=== PATIENT | male | born 1950 | race Caucasian/White ===

== ENCOUNTER 2020-05-09 09:14 | Day surgery (SDC) | payer MEDICARE, SELFPAY ==
[2020-05-09] VITALS (10 sets, daily range): BP systolic 100–127; BP diastolic 58–96; PULSE 50–68; RESP 12–18; TEMP 36.3–36.9; O2SAT 93–99
--- NOTE | ~2020-05-09 | CT_ITS ---
EXAMINATION: CT abdomen pelvis wo con EXAM DATE: 05/09/2020 10:03 INDICATION: Right-sided low abdominal pain 2-3 days. History of kidney stones. Nausea, constipation. TECHNIQUE: Spiral CT of the abdomen and pelvis was performed without contrast. Axial, coronal and sag ittal images were reviewed. The dose-length product (DLP) for this examination was 1421.37 mGy-cm. The exposure was tailored according to patient size (auto mA exposure control), and iterative reconst ruction (ASIR) was used as additional dose reduction technique. Comparison is made to prior examinati on from 11/29/2019. FINDINGS: There is a right midureteral 6 mm stone, with mild hydroureteronephrosis and perinephric, p eriureteral fat stranding. There are 2 additional punctate right calyceal stones. The prostate is un remarkable. The bladder is unremarkable. There is 1.1 cm right adrenal gland lesion consistent with adenoma unchanged. Left adrenal gland, spleen, liver, pancreas are unremarkable. Gallbladder is unr emarkable. No biliary obstruction. There is no retroperitoneal or pelvic lymphadenopathy. There i s mild scattered arteriosclerotic disease. Small bilateral inguinal fat-containing hernias, right lar lindsey than left. Tiny umbilical fat-containing hernia. The appendix is not positively visualized. There is no pericecal inflammatory change to suggest appe ndicitis. The stomach and small bowel are unremarkable. There is expected amount of colonic stool. No free intraperitoneal gas. The heart is normal in size. There are no pericardial or pleural e ffusions. The lung bases are unremarkable. The bones are unremarkable. IMPRESSION: 1. Right mid ureteral 6 mm stone, mild obstructive nephropathy. 2. Right adrenal adenoma. 3. Small fat-containing hernias. Reviewed, dictated and finalized at location B.
--- NOTE | ~2020-05-09 | XR_ITS ---
EXAMINATION: XR abdomen/kub 1V EXAM DATE: 05/09/2020 10:08 INDICATION: Right-sided abdominal pain. TECHNIQUE: Frontal projection(s) of the abdomen for interpretation. Comparison is made to prior exami nation from 11/23/2019. FINDINGS: Right mid ureteral 6 mm stone is identified, indicated projecting over the right side of S 2 segment. There a mild to moderate bony degenerative changes. Nonobstructive bowel gas pattern. Mild lumbar scoliosis. IMPRESSION: Right mid ureteral stone identified. Reviewed, dictated and finalized at location B.
--- NOTE | 2020-05-09 09:42 | ED.ABDPAIN ---
HPI - Abdominal Pain General Chief Complaint: Abdominal Pain Stated Complaint: R flank pain Time Seen by Provider: 05/09/20 09:32 Source: patient Mode of arrival: ambulatory Limitations: no limitations History of Present Illness HPI narrative: Patient is a 70-year-old male with a history of nephrolithiasis who presents for evaluation of right-sided flank pain. Patient states pain began last night, described as sharp, at times very severe in nature with radiation into the lower groin. No testicle pain or penile pain at this point. Patient had a short episode of nausea this morning without any emesis. No fever or chills, no hematuria that he has noticed. No frequency or hesitancy that he has noticed at this point. Patient has required lithotripsy with Dr. Avery's in the past. No chest pain or shortness of breath. No rash, recent fall or injury. Related Data Home Medications Medication Instructions Recorded Confirmed Bystolic 2.5 mg PO HS 10/29/19 11/15/19 calcium carbonate [Oyster Shell 500 mg PO DAILY 10/29/19 11/15/19 Calcium] finasteride 5 mg PO DAILY 10/29/19 11/15/19 isosorbide mononitrate 60 mg PO DAILY 10/29/19 11/15/19 spironolactone 25 mg PO DAILY 10/29/19 11/15/19 testosterone cypionate 200 mg IM [id number] 10/29/19 11/15/19 trazodone 100 mg PO HS 10/29/19 11/15/19 valsartan 160 mg PO HS 10/29/19 11/15/19 Allergies Allergy/AdvReac Type Severity Reaction Status Date / Time No Known Allergies Allergy Verified 05/09/20 09:17 Review of Systems Review of Systems: Narrative: CONSTITUTIONAL: Denies fever, chills, or sweats. CARDIOVASCULAR: Denies chest pain, palpitations, or edema. RESPIRATORY: Denies cough or dyspnea. GASTROINTESTINAL: Reports right-sided flank pain, right lower quadrant pain at times, none currently, nausea, reports mild constipation GENITOURINARY: Denies dysuria or hematuria. SKIN: Denies rash or itching. MUSCULOSKELETAL: Denies back pain, joint pain, or myalgia. NEUROLOGIC: Denies headache, numbness, or weakness. [facility] Past Medical History Medical History CHF (congestive heart failure) Hypertension Morbid obesity MICHAEL (obstructive sleep apnea) Pituitary tumor Pulmonary hypertension Surgical History Surgical History H/O transurethral resection of prostate Social History Social History Smoking status: Never smoker Alcohol intake: current Gender identity (if verbalized by the patient): Male Exam Narrative: Exam Narrative: GENERAL: Awake, alert, conversant HEAD: Normocephalic, atraumatic. EYES: PERRLA and EOMI. ENT: Nares clear, no rhinorrhea or epistaxis. Mucous membranes moist. NECK: Supple. CHEST: No respiratory distress, breathing even and non labored HEART: Bradycardic rate, sinus rhythm ABDOMEN:Non distended, non tender, no right lower quadrant tenderness, positive right flank tenderness EXTREMITIES: Normal range of motion. No edema. SKIN: Warm, dry, no rash. No vesicles or ecchymosis over the right flank. NEURO:No focal deficits. Alert and oriented x3 Course Vital Signs Vital signs: Vital Signs Temperature 36.9 C 05/09/20 09:23 Pulse Rate 50 L 05/09/20 09:23 Respiratory Rate 18 05/09/20 09:23 Blood Pressure 127/96 H 05/09/20 09:23 Pulse Oximetry 96 05/09/20 09:23 Temperature 36.9 C 05/09/20 09:23 Pulse Rate 50 L 05/09/20 10:54 Respiratory Rate 16 05/09/20 10:54 Blood Pressure 100/58 L 05/09/20 10:54 Pulse Oximetry 97 05/09/20 10:54 MDM - Abdominal Pain MDM Narrative Medical decision making narrative: Patient presenting for evaluation of right flank pain. At the time of assessment, ABCs are intact, patient is slightly bradycardic, but asymptomatic with a stable blood pressure. Patient is reporting right flank pain and does have right CVA tenderness on
[2020-05-09 09:57] LABS: Basophils Percent Auto 0.2 % (0.2-1.2); Eosinophils Absolute Auto 0.1 K/mm3 (0-0.3); Eosinophils Percent Auto 1.3 % (0-4.4); Hematocrit 50.2 % (42.0-52.0); Hemoglobin 17.2 g/dL (14.0-18.0); Immature Granulocyte Absolute 0.04 K/mm3 (0.00-0.031); Immature Granulocyte Percent A 0.4 % (0-0.5); Lymphocytes Absolute Auto 1.55 K/mm3 (0.9-3.2); Lymphocytes Percent Auto 16.9 % (18.3-44.2); Mean Corpuscular HGB Conc 34.3 g/dl (32-36); Mean Corpuscular Hemoglobin 31.2 pg (26-34); Mean Corpuscular Volume 90.9 fl (80-100); Mean Platelet Volume 9.4 fl (7.4-10.4); Monocytes Absolute Auto 0.8 K/mm3 (0.1-0.6); Monocytes Percent Auto 8.4 % (2.6-8.5); Neutrophils Absolute Auto 6.7 K/mm3 (1.3-6.7); Neutrophils Percent Auto 72.8 % (45.5-73.1); Platelet Count Result 144 k/mm3 (150-375); Red Blood Count 5.52 M/mm3 (4.6-6.20); White Blood Count 9.2 K/mm3 (4.5-10.0)
[2020-05-09] MEDS: ONDANSETRON INJ 4 MG/2 ML VIAL IV PUSH (10:06)
[2020-05-09] MEDS: SODIUM CHLORIDE 0.9% IV 1,000 ML 999 ML IV CONT (10:06)
[2020-05-09] MEDS: MORPHINE SULFATE 4 MG/ML INJ IV PUSH (10:07)
[2020-05-09 10:12] LABS: Alanine Aminotransferase 30 U/L (4-50); Albumin Level 4.1 g/dL (3.5-5.1); Alkaline Phosphatase 59 U/L (38-126); Aspartate Amino Transferase 31 U/L (17-59); Bilirubin,Total 0.6 mg/dL (0.2-1.3); Blood Urea Nitrogen 22 mg/dL (9-20); Calcium 9.6 mg/dL (8.4-10.2); Carbon Dioxide 23 mmol/L (22-30); Chloride 107 mmol/L (98-107); Estimated CRCL calculation 53 ml/min; Estimated Glomerular Filt Rate 43; Glucose 112 mg/dL (75-110); Potassium 4.1 mmol/L (3.4-5.0); Sodium 135 mmol/L (137-145)
[2020-05-09 11:07] LABS: Add Urine Microscopic? YES; Appearance Urine Clear (Clear); Bilirubin Urine Negative (Negative); Blood Urine 3+ (Negative); Color Urine Yellow (Yellow); Glucose Urine UA Negative (Negative); Ketones Urine Negative (Negative); Leukocyte Esterase Ur Negative LEU/UL (Negative); Mucus Urine Rare /lpf; Nitrate Urine Negative (Negative); Protein Urine Negative (Negative); Specific Grav Ur 1.018 (1.001-1.035); Urobilinogen Urine Negative mg/dL (<2.0); WBC Urine 0-3 /hpf
--- NOTE | 2020-05-09 11:38 | WPDURCON ---
Assessment and Plan Assessment and plan (1) Right nephrolithiasis: Code(s): N20.0 - Calculus of kidney Status: Acute Assessment and Plan: Patient will go to the OR today for a Right ESWL, possible cystoscopy with right ureteral stent. Obtain consent, Keep NPO. Urology Consult Note HPI Date Seen: 05/09/20 Primary Care Provider: Eugene Wolf, DO Consult Narrative Narrative: Benjamin Wright is a 70 year old male who presented to the ER today for severe right flank pain with acute onset that radiates to the right groin. He also c/o nausea. He has a history of kidney stones and is treated by Dr. Jacome. His most recent CT in 11/29/2019 shows a right mid/distal ureteral stone measuring 3mm and right non obstructive stones s/p Right ESWL on 11/09/[address] Jacome. His CT scan from today shows a 6mm right mid ureteral stone which is visible on KUB. WBC is 9.2, Creatinine 1.60, UA shows only 3+ blood, urine culture is pending, but not suspicous for infection. He is having uncontrolled pain despite Morphine and is NPO. He denies dysuria, hematuria, frequency or urgency to urinate. Review of Systems Cardiovascular: Cardiovascular: Denies chest pain Respiratory: Respiratory: Reports no additional respiratory complaints Gastrointestinal: Gastrointestinal: Reports abdominal pain, Reports nausea and Denies vomiting Genitourinary: Genitourinary: Denies hematuria, Denies dysuria, Reports flank pain, Denies testicular pain, Denies urinary frequency, Denies urinary hesitancy, Denies urinary incontinence and Denies urinary urgency [facility] Past Medical History Medical History CHF (congestive heart failure) Hypertension Morbid obesity MICHAEL (obstructive sleep apnea) Pituitary tumor Pulmonary hypertension Surgical History Surgical History H/O transurethral resection of prostate Social History Social History Smoking status: Never smoker Alcohol intake: current Gender identity (if verbalized by the patient): Male Meds Home Medications and Allergies Home Medications Medication Instructions Recorded Confirmed Type Bystolic 2.5 mg PO HS 10/29/19 11/15/19 History calcium carbonate [Oyster Shell 500 mg PO DAILY 10/29/19 11/15/19 History Calcium] finasteride 5 mg PO DAILY 10/29/19 11/15/19 History isosorbide mononitrate 60 mg PO DAILY 10/29/19 11/15/19 History spironolactone 25 mg PO DAILY 10/29/19 11/15/19 History testosterone cypionate 200 mg IM [id number] 10/29/19 11/15/19 History trazodone 100 mg PO HS 10/29/19 11/15/19 History valsartan 160 mg PO HS 10/29/19 11/15/19 History tamsulosin [Flomax] 0.4 mg PO DAILY #7 cap 11/29/19 Rx Allergies Allergy/AdvReac Type Severity Reaction Status Date / Time No Known Allergies Allergy Verified 05/09/20 09:17 Vital Signs Vital Signs - 24 hr 05/09/20 09:23 05/09/20 10:54 Temperature 98.5 F Pulse Rate 50 L 50 L Respiratory Rate 18 16 Blood Pressure 127/96 H 100/58 L Pulse Oximetry 96 97 Exam Resp: Effort & Inspection: tachypneic Cardio: Rate: bradycardic GI: GI Palp: Yes Tenderness to palpation present (GI) : General: Yes CVA tenderness on the right Extrem: General: no edema Results Labs CBC & Chem 7: 05/09/20 09:48 05/09/20 09:48 Labs: Short CBC 05/09/20 Range/Units 09:48 WBC 9.2 (4.5-10.0) K/mm3 Hgb 17.2 (14.0-18.0) g/dL Hct 50.2 (42.0-52.0) % Plt Count 144 L (150-375) k/mm3 BMP 05/09/20 09:48 Sodium 135 L Potassium 4.1 Chloride 107 Carbon Dioxide 23 BUN 22 H Creatinine 1.60 H Glucose 112 H Calcium 9.6 Liver Function 05/09/20 Range/Units 09:48 Total Bilirubin 0.6 (0.2-1.3) mg/dL AST 31 (17-59) U/L ALT 30 (4-50) U/L Alkaline Phosphatase 59 (38-126) U/L Albumi
[2020-05-09 12:14] LABS: Prothrombin Time 12.4 Seconds (11.1-14.7)
[2020-05-09 12:15] LABS: Partial Thromboplastin Time 30.3 SECONDS (22.3-36.8)
--- NOTE | 2020-05-09 12:15 | WPDANESEPPF ---
Anes - Initial Pre Proc Eval Procedure: Operation Date: 05/09/20 11:30 Proposed Procedures p Right Extracorporeal Shock Wave Lithotripsy - Lawson Jacome MD Date/Time: 05/09/20 12:15 Surgeon: Lawson Jacome MD Pre Op Diagnosis: R flank pain Patient Data Age: 70 Gender: M Height: 1.83 m Weight: 127.9 kg Last Vital Signs Temp 36.9 C 05/09/20 09:23 Pulse 50 L 05/09/20 10:54 Resp 16 05/09/20 10:54 BP 100/58 L 05/09/20 10:54 Pulse Ox 97 05/09/20 10:54 Allergies Allergy/AdvReac Type Severity Reaction Status Date / Time No Known Allergies Allergy Verified 05/09/20 09:17 Home Medications Medication Instructions Recorded Confirmed Type Bystolic 2.5 mg PO HS 10/29/19 11/15/19 History calcium carbonate [Oyster Shell 500 mg PO DAILY 10/29/19 11/15/19 History Calcium] finasteride 5 mg PO DAILY 10/29/19 11/15/19 History isosorbide mononitrate 60 mg PO DAILY 10/29/19 11/15/19 History spironolactone 25 mg PO DAILY 10/29/19 11/15/19 History testosterone cypionate 200 mg IM [id number] 10/29/19 11/15/19 History trazodone 100 mg PO HS 10/29/19 11/15/19 History valsartan 160 mg PO HS 10/29/19 11/15/19 History tamsulosin [Flomax] 0.4 mg PO DAILY #7 cap 11/29/19 Rx Laboratory Tests 05/09/20 05/09/20 05/09/20 09:48 09:48 09:48 WBC 9.2 K/mm3 K/mm3 (4.5-10.0) RBC 5.52 M/mm3 M/mm3 (4.6-6.20) Hgb 17.2 g/dL g/dL (14.0-18.0) Hct 50.2 % % (42.0-52.0) MCV 90.9 fl fl (80-100) MCH 31.2 pg pg (26-34) MCHC 34.3 g/dl g/dl (32-36) RDW 13.0 % % (11.5-14.5) Plt Count 144 k/mm3 L k/mm3 (150-375) MPV 9.4 fl fl (7.4-10.4) Immature Gran % (Auto) 0.4 % % (0-0.5) Neut % (Auto) 72.8 % % (45.5-73.1) Lymph % (Auto) 16.9 % L % (18.3-44.2) Caldwell % (Auto) 8.4 % % (2.6-8.5) Eos % (Auto) 1.3 % % (0-4.4) Baso % (Auto) 0.2 % % (0.2-1.2) Lymph # (Auto) 1.55 K/mm3 K/mm3 (0.9-3.2) Caldwell # (Auto) 0.8 K/mm3 H K/mm3 (0.1-0.6) Eos # (Auto) 0.1 K/mm3 K/mm3 (0-0.3) Baso # (Auto) 0.0 K/mm3 K/mm3 (0.0-0.1) Abs Immat Gran (auto) 0.04 K/mm3 H K/mm3 (0.00-0.031) Absolute Neuts (auto) 6.7 K/mm3 K/mm3 (1.3-6.7) Absolute Nucleated RBC 0.0 K/mm3 K/mm3 (0.0-0.012) Nucleated RBC % 0.0 % % (0.0-0.2) PT 12.4 Seconds Seconds (11.1-14.7) INR 1.0 APTT 30.3 SECONDS SECONDS (22.3-36.8) Sodium 135 mmol/L L mmol/L (137-145) Potassium 4.1 mmol/L mmol/L (3.4-5.0) Chloride 107 mmol/L mmol/L (98-107) Carbon Dioxide 23 mmol/L mmol/L (22-30) BUN 22 mg/dL H mg/dL (9-20) Creatinine 1.60 mg/dL H mg/dL (0.7-1.3) Estim Creat Clear Calc 53 ml/min ml/min Estimated GFR 43 L (59 - ) Glucose 112 mg/dL H mg/dL (75-110) Calcium 9.6 mg/dL mg/dL (8.4-10.2) Total Bilirubin 0.6 mg/dL mg/dL (0.2-1.3) AST 31 U/L U/L (17-59) ALT 30 U/L U/L (4-50) Alkaline Phosphatase 59 U/L U/L (38-126) Total Protein 6.0 g/dL L g/dL (6.3-8.2) Albumin 4.1 g/dL g/dL (3.5-5.1) Urine Color Urine Appearance Urine pH Ur Specific Ehrhardt Urine Protein Urine Glucose (UA) Urine Ketones Ur Blood (Man) Urine Nitrate Urine Bilirubin Urine Urobilinogen Leukocyte Esterase Rfl Urine RBC Urine WBC Urine Mucus 05/09/20 10:57 WBC RBC Hgb Hct MCV MCH MCHC RDW Plt Count MPV Immature Gran % (Auto) Neut % (Auto) Lymph % (Auto) Caldwell % (
[2020-05-09] MEDS: ceFAZolin 3 GM/D5W 100 ML 100 ML IVPB (12:30)
--- NOTE | 2020-05-09 12:45 | PM.PROC ---
Procedure Note - Detailed Date of procedure: 05/09/20 Pre-op diagnosis: R flank pain Post-op diagnosis: same Procedure performed: Right ESWL Description of procedure: The patient was brought to the operative suite where he was placed in the supine position on the Dornier lithotripsy table. The focal point of the lithotripter was placed at a 6mm right mid-ureteral calculus. A total of 3000 shocks were delivered at a power setting of 4. There appeared to be good fragmentation of the stone. The patient tolerated the procedure well and was taken to the recovery room in good condition. Anesthesia: GLMA Surgeon: Lawson Jacome MD Estimated blood loss (mL): 0 Drains: No Packing: No Pathology: none sent Complications: No immediate complications Condition: stable Disposition: PACU
[2020-05-09] MEDS: LACTATED RINGERS 1,000 ML 30 ML IV CONT (13:24)
== END 2020-05-09 15:55 | disposition home or self-care (01) ==
LOC: ANHED 11:36 → ANHSURGERY 11:44
PROVIDERS: Emergency Provider Emergency Medicine; PCP Student in an Organized Health Care Education/Training Program; Visit Provider Urology
PROC: (CPT 50590; principal; 2020-05-09 11:30)
DX: N20.1 Calculus of ureter (principal); Z87.442 Personal history of urinary calculi; I11.0 Hypertensive heart disease with heart failure; I50.9 Heart failure, unspecified; I27.20 Pulmonary hypertension, unspecified; G47.33 Obstructive sleep apnea (adult) (pediatric); E66.01 Morbid (severe) obesity due to excess calories; Z68.38 Body mass index [BMI] 38.0-38.9, adult; Z79.899 Other long term (current) drug therapy
CPT/HCPCS: 50590; 36415; 74018; 74176; 80053; 81001; 85025; 85610; 85730; 96361; 96365; 96375; 99285; J0131; J0690; J1100; J1170; J2250; J2270; J2405; J2704; J3010; J7030; J7120

== ENCOUNTER 2020-05-14 15:04 | Outpatient (CLI) | payer MEDICARE, SELFPAY ==
--- NOTE | ~2020-05-14 | XR_ITS ---
EXAMINATION: XR abdomen/kub 1V INDICATION: Bilateral kidney stones TECHNIQUE: Supine views of the abdomen were obtained on 2 radiographs. COMPARISON: 05/09/2020 FINDINGS: A right-sided stone previously described in the right mid ureter is not definitely identifi ed. No urinary tract calculi are seen. There are phleboliths of the left pelvis. The bowel gas patter n is normal. There is mild lumbar spondylosis. Mild to moderate bilateral hip osteoarthritis is noted . IMPRESSION: 1. No definite urinary tract calculi identified. Reviewed, dictated and finalized at location A.
== END 2020-05-14 15:05 | disposition home or self-care (01) ==
LOC: ANHIMG 15:18
PROVIDERS: PCP Student in an Organized Health Care Education/Training Program; Visit Provider Urology
DX: N20.0 Calculus of kidney (principal)
CPT/HCPCS: 74018

== ENCOUNTER 2020-12-13 01:17 | Outpatient (CLI) | payer MEDICARE, SELFPAY ==
[2020-12-13 18:46] LABS: SARS-CoV-2 RNA PCR Negative
== END 2020-12-13 01:18 | disposition home or self-care (01) ==
LOC: ANHCOVIDDT 01:17
PROVIDERS: PCP Nurse Practitioner Family; Visit Provider Internal Medicine Gastroenterology
DX: Z01.812 Encounter for preprocedural laboratory examination (principal); Z20.822 Contact with and (suspected) exposure to COVID-19
CPT/HCPCS: C9803; U0003; U0005

== ENCOUNTER 2020-12-16 02:06 | Day surgery (SDC) | payer MEDICARE, SELFPAY ==
[2020-12-11 10:13] VITALS: BMI 38.8
[2020-12-16 08:02] VITALS: BP 135/83; PULSE 63; RESP 20; TEMP 36.8; O2SAT 97; BMI 39.5
[2020-12-16] MEDS: LACTATED RINGERS 1,000 ML 150 ML IV CONT (08:12)
--- NOTE | 2020-12-16 08:55 | WPDGICN ---
Assessment and Plan Assessment and plan (1) Encounter for screening colonoscopy: Code(s): Z12.11 - Encounter for screening for malignant neoplasm of colon Status: Acute Assessment and Plan: Patient presents for screening colonoscopy. Last exam was greater than 10 years ago. He appears to be at average risk for colon polyps. Further recommendations may be given after endoscopy. GI Consult Note Consult date/time: 12/16/20 08:55 HPI: Benjamin Wright is a 70 year old male Presents for screening colonoscopy. Last exam was greater than 10 years ago. Patient's current weight appetite bowel movements are normal. Patient denies abdominal pain. He has had no bleeding. His weight remained stable. Family history is noncontributory. Review of Systems Review of Systems: All systems reviewed & are unremarkable except as noted in HPI and below PMFSH Past Medical History Medical History (Updated 12/16/20 @ 08:56 by Cruzito Washington MD) CHF (congestive heart failure) Hypertension Morbid obesity MICHAEL (obstructive sleep apnea) Pituitary tumor Pulmonary hypertension Surgical History Surgical History H/O transurethral resection of prostate Social History Social History Smoking status: Never smoker Alcohol intake: never Substance use: never Substance use type: does not use Gender identity (if verbalized by the patient): Male Spiritual care concerns: No Meds Home Medications and Allergies Home Medications Medication Instructions Recorded Confirmed Type calcium carbonate [Oyster Shell 500 mg PO DAILY 10/29/19 12/11/20 History Calcium] isosorbide mononitrate 60 mg PO DAILY 10/29/19 12/11/20 History spironolactone 12.5 mg PO DAILY 10/29/19 12/11/20 History testosterone cypionate 200 mg IM [id number] 10/29/19 12/11/20 History trazodone 100 mg PO HS 10/29/19 12/11/20 History Apple Cidar Vinegar 2 tbsp PO DAILY 12/11/20 12/11/20 History Mupirocin Compound 2 spray EACH NARE BID 12/11/20 12/11/20 History carvedilol 3.125 mg PO [id number] 12/11/20 12/11/20 History ipratropium bromide 2 spray INTRANASAL BID 12/11/20 12/11/20 History omeprazole 40 mg PO DAILY PRN 12/11/20 12/11/20 History sodium,potassium,mag sulfates See Rx Instructions .ROUTE 12/11/20 Rx [Suprep Bowel Prep Kit] .COMPLEX #1 ml valsartan 80 mg PO HS 12/11/20 12/11/20 History Allergies Allergy/AdvReac Type Severity Reaction Status Date / Time No Known Allergies Allergy Verified 12/16/20 08:01 Vital Signs Vital Signs - 24 hr 12/16/20 08:02 Temperature 98.2 F Pulse Rate 63 Respiratory Rate 20 Blood Pressure 135/83 Pulse Oximetry 97 Exam Narrative: Exam Narrative: Physical exam reveals patient to be alert. Vital signs stable. HEENT exam unremarkable. Lungs are clear to auscultation and percussion. Heart is without murmur or extra sounds. Abdominal exam bowel sounds are present soft nontender with no organomegaly. Digital external rectal exam is normal.
--- NOTE | 2020-12-16 09:09 | WPDANESEPPF ---
Anes - Initial Pre Proc Eval Procedure: Operation Date: 12/16/20 09:00 Proposed Procedures p Screening Colonoscopy - Cruzito Washington MD Date/Time: 12/16/20 09:09 Surgeon: Cruzito Washington MD Pre Op Diagnosis: Neoplasm Screening Patient Data Age: 70 Gender: M Height: 6 ft Weight: 132.3 kg Last Vital Signs Temp 98.2 F 12/16/20 08:02 Pulse 63 12/16/20 08:02 Resp 20 12/16/20 08:02 BP 135/83 12/16/20 08:02 Pulse Ox 97 12/16/20 08:02 Allergies Allergy/AdvReac Type Severity Reaction Status Date / Time No Known Allergies Allergy Verified 12/16/20 08:01 Home Medications Medication Instructions Recorded Confirmed Type calcium carbonate [Oyster Shell 500 mg PO DAILY 10/29/19 12/11/20 History Calcium] isosorbide mononitrate 60 mg PO DAILY 10/29/19 12/11/20 History spironolactone 12.5 mg PO DAILY 10/29/19 12/11/20 History testosterone cypionate 200 mg IM [id number] 10/29/19 12/11/20 History trazodone 100 mg PO HS 10/29/19 12/11/20 History Apple Cidar Vinegar 2 tbsp PO DAILY 12/11/20 12/11/20 History Mupirocin Compound 2 spray EACH NARE BID 12/11/20 12/11/20 History carvedilol 3.125 mg PO [id number] 12/11/20 12/11/20 History ipratropium bromide 2 spray INTRANASAL BID 12/11/20 12/11/20 History omeprazole 40 mg PO DAILY PRN 12/11/20 12/11/20 History sodium,potassium,mag sulfates See Rx Instructions .ROUTE 12/11/20 Rx [Suprep Bowel Prep Kit] .COMPLEX #1 ml valsartan 80 mg PO HS 12/11/20 12/11/20 History Patient hx anesthesia problems: none Family hx anesthesia problems: none PMFSH Past Medical History Medical History (Updated 12/16/20 @ 08:56 by Cruzito Washington MD) CHF (congestive heart failure) Hypertension Morbid obesity MICHAEL (obstructive sleep apnea) Pituitary tumor Pulmonary hypertension Surgical History Surgical History H/O transurethral resection of prostate Social History Social History Smoking status: Never smoker Alcohol intake: never Substance use: never Substance use type: does not use Gender identity (if verbalized by the patient): Male Spiritual care concerns: No Anes - Eval Final PreProcedure Day of Procedure 12/16/20 09:09 Patient weight: morbidly obese Heart: regular rate and rhythm Lungs: clear to auscultation Airway: Mallampati scale class III Neurological: alert and oriented Last oral intake: >/= 8 hours ASA classification: III Emergent: no Anesthetic plan: proceed Anesthesia type and monitoring: general GIVS and standard monitoring Informed Consent: The patient's anesthetic plan and its attendant risks and benefits were discussed with the patient/family/POA. Questions were solicited and answers provided to the satisfaction of the patient/family/POA.
[2020-12-16 10:07] VITALS: BP 104/56; PULSE 53; RESP 21; O2SAT 99
[2020-12-16 10:17] VITALS: BP 102/61; PULSE 52; RESP 16; O2SAT 99
[2020-12-16 10:27] VITALS: BP 123/90; PULSE 49; RESP 22; O2SAT 98
== END 2020-12-16 10:36 | disposition home or self-care (01) ==
PROVIDERS: PCP Nurse Practitioner Family; Visit Provider Internal Medicine Gastroenterology
PROC: 0DJD8ZZ Inspection of Lower Intestinal Tract, Via Natural or Artificial Opening Endoscopic (ICD-10-PCS; CPT 45378; principal; 2020-12-16 09:00)
DX: Z12.11 Encounter for screening for malignant neoplasm of colon (principal); D12.3 Benign neoplasm of transverse colon; K64.8 Other hemorrhoids; I11.0 Hypertensive heart disease with heart failure; I50.9 Heart failure, unspecified; G47.33 Obstructive sleep apnea (adult) (pediatric); E66.01 Morbid (severe) obesity due to excess calories; Z68.39 Body mass index [BMI] 39.0-39.9, adult
CPT/HCPCS: 45385; 88305; J2704; J7120

== ENCOUNTER 2023-01-04 10:10 | Outpatient (CLI) | payer MEDICARE, SELFPAY ==
--- NOTE | ~2023-01-04 | US_ITS ---
EXAMINATION:US venous doppler LE LT INDICATION:Left leg pain TECHNIQUE: Multiple grayscale, color flow and Doppler images of the left lower extremity deep venous systems were obtained and reviewed. COMPARISON:07/29/2017 FINDINGS: The common femoral, superficial femoral and popliteal veins demonstrate normal respiratory variation, augmentation and compressibility. Color flow is also seen within the posterior tibial, pe roneal, greater saphenous and profunda veins. IMPRESSION: 1: No lower extremity deep venous thrombosis. Reviewed, dictated and finalized at location L. ICAL PROGRAM COORDINATOR
== END 2023-01-04 10:11 | disposition home or self-care (01) ==
PROVIDERS: PCP Family Medicine; Visit Provider Internal Medicine Cardiovascular Disease
DX: M79.605 Pain in left leg (principal)
CPT/HCPCS: 93971

== ENCOUNTER 2023-04-18 02:49 | Emergency (ER) | payer MEDICARE, SELFPAY ==
[2023-04-18] VITALS (15 sets, daily range): BP systolic 102–138; BP diastolic 64–85; PULSE 88–113; RESP 13–22; O2SAT 95–96
--- NOTE | ~2023-04-18 | XR_ITS ---
Portable chest x-ray Comparison: 09/28/2019 Clinical History: Shortness of breath Findings: Lungs are clear, without focal consolidation or pleural effusion. Cardiomediastinal silho uette is stable. Bones and soft tissues are unremarkable. Impression: Clear lungs. Reviewed, dictated and finalized at location . Impression: Clear lungs.
--- NOTE | 2023-04-18 03:10 | ECG_ITS ---
Measurements Intervals Sebastian Rate: 108 P: 83 SD: 196 QRS: -10 QRSD: 112 T: 35 QT: 303 QTc: 407 Interpretive Statements SINUS TACHYCARDIA WITH OCCASIONAL SUPRAVENTRICULAR PREMATURE COMPLEXES MODERATE INTRAVENTRICULAR CONDUCTION DELAY [110+ ms QRS DURATION] NONSPECIFIC T-WAVE ABNORMALITY ABNORMAL ECG COMPARED TO ECG 11/02/2019 11:00:21 SINUS TACHYCARDIA NOW PRESENT T-WAVE ABNORMALITY NOW PRESENT Electronically Signed On 04-18-2023 10:24:39 CDT by Antonino Monzon M.D.
--- NOTE | 2023-04-18 03:11 | ED.GENADULT ---
HPI - General Adult General Chief complaint: Nausea/Vomiting/Diarrhea Stated complaint: n/v/d Time Seen by Provider: 04/18/23 03:00 History of Present Illness HPI narrative: Patient 73-year-old gentleman who presents the emergency department with chief complaint of nausea and vomiting and diarrhea. Patient reports that his doctor increased his Ozempic from 1 mg to 2 mg and the patient has had 2 weeks of nausea and vomiting. Patient reports he also has history of congestive heart failure and reports that he has vomited up his medications including his long-acting nitroglycerin the patient reports that he is having some shortness of breath but having no chest pain Related Data Home Medications Medication Instructions Recorded Confirmed isosorbide mononitrate 60 mg 60 mg PO DAILY 10/29/19 12/11/20 tablet,extended release 24 hr spironolactone 25 mg tablet 12.5 mg PO DAILY 10/29/19 12/11/20 testosterone cypionate 200 mg/mL 200 mg IM [id number] 10/29/19 12/11/20 intramuscular kit trazodone 100 mg tablet 100 mg PO HS 10/29/19 12/11/20 Mupirocin Compound 2 spray EACH NARE BID 12/11/20 12/11/20 carvedilol 3.125 mg tablet 3.125 mg PO BIDWMEAL 12/11/20 12/11/20 ipratropium bromide 42 mcg (0.06 2 spray intranasal BID 12/11/20 12/11/20 %) nasal spray omeprazole 40 mg capsule,delayed 40 mg PO DAILY PRN Gastric Reflux 12/11/20 12/11/20 release valsartan 80 mg tablet 80 mg PO HS 12/11/20 12/11/20 cholecalciferol (vitamin D3) 50 50 mcg PO DAILY 02/10/22 mcg (2,000 unit) capsule fexofenadine 60 mg-pseudoephedrine 1 tablet PO Q12H PRN 02/10/22 ER 120 mg tablet,ext.release,12 hr (Yoli-D 12 Hour) mecobalamin (vitamin B12) 1,000 1,000 mcg sublingual DAILY 02/10/22 mcg disintegrating tablet,sublingual rimashow-ywz-bycto acid 0.4 1 tablet PO DAILY 02/10/22 mg-lycopene 300 mcg-lutein 250 mcg tablet (Centravites 50 Plus) Allergies Allergy/AdvReac Type Severity Reaction Status Date / Time No Known Allergies Allergy Verified 02/10/22 14:57 Review of Systems Review of Systems: A 10 system review of systems was completed on the patient and is negative except for what is stated in the HPI. Nursing and ancillary documentation was reviewed. [facility] Past Medical History Medical History (Updated 04/18/23 @ 06:06 by Koko Lazo MD) CHF (congestive heart failure) Hypertension Morbid obesity MICHAEL (obstructive sleep apnea) Pituitary tumor Pulmonary hypertension Surgical History Surgical History H/O transurethral resection of prostate Social History Social History Smoking status: Never smoker Alcohol intake: never Substance use: never Substance use type: does not use Gender identity (if verbalized by the patient): Male Spiritual care concerns: No Exam Narrative: GENERAL: Well-appearing, well-nourished, and in no acute distress. HEAD: Normocephalic, atraumatic. EYES: PERRLA and EOMI. ENT: Nares clear, no rhinorrhea or epistaxis. Dry membranes moist. NECK: Supple. CHEST: Clear to auscultation. No respiratory distress. HEART: Regular rate and rhythm. No murmur heard. Normal peripheral pulses. ABDOMEN: Soft, nontender, nondistended, normal active bowel sounds. EXTREMITIES: Normal range of motion. No edema. SKIN: Warm, dry, no rash. NEURO: No focal deficits. Alert and oriented x3. PSYCH: Normal mood and affect. Course Vital Signs Vital signs: Vital Signs Pulse Rate 113 H 04/18/23 02:59 Respiratory Rate 22 H 04/18/23 02:59 Blood Pressure 115/71 04/18/23 02:59 Pulse Oximetry 95 04/18/23 02:59 Pulse Rate 107 H 04/18/23 03:01 Respiratory Rate 16 04/18/23 03:01 Blood Pressure 114/76 04/18/23 03:01 Pulse Oximetry 95 04/18/23 03:01 Medical Decision Making MDM Narrative Medical decision making narrative:
[2023-04-18 03:26] LABS: Basophils Absolute Auto 0.1 K/mm3 (0.0-0.1); Basophils Percent Auto 1.2 % (0.2-1.2); Eosinophils Absolute Auto 0.1 K/mm3 (0-0.3); Eosinophils Percent Auto 1.8 % (0-4.4); Hematocrit 52.4 % (42.0-52.0); Hemoglobin 18.7 g/dL (14.0-18.0); Immature Granulocyte Absolute 0.06 K/mm3 (0.00-0.031); Immature Granulocyte Percent A 0.9 % (0-0.5); Lymphocytes Absolute Auto 0.86 K/mm3 (0.9-3.2); Lymphocytes Percent Auto 12.9 % (18.3-44.2); Mean Corpuscular HGB Conc 35.7 g/dl (32-36); Mean Corpuscular Hemoglobin 31.2 pg (26-34); Mean Corpuscular Volume 87.3 fl (80-100); Mean Platelet Volume 9.6 fl (7.4-10.4); Monocytes Absolute Auto 0.6 K/mm3 (0.1-0.6); Monocytes Percent Auto 8.4 % (2.6-8.5); Neutrophils Percent Auto 74.8 % (45.5-73.1); Platelet Count Result 258 k/mm3 (150-375); Red Cell Distribution Width 13.2 % (11.5-14.5); White Blood Count 6.7 K/mm3 (4.5-10.0)
[2023-04-18] MEDS: ONDANSETRON INJ 4 MG/2 ML VIAL IV PUSH (03:30)
[2023-04-18] MEDS: SODIUM CHLORIDE 0.9% IV 500 ML 999 ML IV CONT ×3 (03:30→05:46)
[2023-04-18 03:36] LABS: Prothrombin Time 13.9 Seconds (11.1-14.7)
[2023-04-18 03:42] LABS: Alanine Aminotransferase 86 U/L (6-50); Albumin Level 4.5 g/dL (3.5-5.1); Alkaline Phosphatase 61 U/L (38-126); Anion Gap 13 mmol/L (8-16); Aspartate Amino Transferase 38 U/L (17-59); Bilirubin,Total 1.1 mg/dL (0.2-1.3); Blood Urea Nitrogen 35 mg/dL (9-20); Calcium 8.6 mg/dL (8.4-10.2); Carbon Dioxide 21 mmol/L (22-30); Chloride 107 mmol/L (98-107); Estimated Glomerular Filt Rate 54; Glucose 145 mg/dL (65-110); Lipase 190 U/L (23-300); Magnesium 1.6 mg/dL (1.6-2.3); Potassium 3.5 mmol/L (3.4-5.0); Sodium 141 mmol/L (137-145)
[2023-04-18 03:47] LABS: NT Pro B Type Natriuretic Pept 119 pg/mL (19.9-100); Troponin I < 0.012 ng/mL (0.000-0.034)
[2023-04-18 03:48] LABS: Lactic Acid Reflex 1.4 mmol/L (0.7-2.0)
[2023-04-18] MEDS: MAGNESIUM SULF 2 GM/WATER 50ML 2 GM/50 ML BAG IVPB (05:47)
== END 2023-04-18 07:10 | disposition home or self-care (01) ==
PROVIDERS: Emergency Provider Emergency Medicine; PCP Family Medicine
DX: R11.2 Nausea with vomiting, unspecified (principal); E83.42 Hypomagnesemia; E86.0 Dehydration; I11.0 Hypertensive heart disease with heart failure; I50.9 Heart failure, unspecified; G47.33 Obstructive sleep apnea (adult) (pediatric)
CPT/HCPCS: 36415; 71045; 80053; 83605; 83690; 83735; 83880; 84484; 85025; 85610; 85730; 93005; 96361; 96365; 96375; 99284; J2405; J3475; J7040

== ENCOUNTER 2023-05-13 08:31 | Emergency (ER) | payer MEDICARE, SELFPAY ==
[2023-05-13] VITALS (17 sets, daily range): BP systolic 115–143; BP diastolic 72–90; PULSE 85–97; RESP 13–20; TEMP 36.4; O2SAT 92–99
--- NOTE | ~2023-05-13 | CT_ITS ---
EXAMINATION: CT abdomen pelvis w con DATE: 05/13/2023 10:13 INDICATION: Right upper quadrant abdominal pain and epigastric pain. 3 days of nausea, vomiting and d iarrhea. TECHNIQUE: Computed tomography (CT) of the abdomen and pelvis was performed with 100 mL Omnipaque-350 intravenous contrast. Automated exposure control and iterative reconstruction technique were employe d. The dose-length product was 1559.39 mGy-cm. COMPARISON: 05/09/2020 FINDINGS: Unchanged 3 mm pleural-based nodule at the posterior left lower lobe. Heart size is normal. Small per icardial effusion. No pleural effusion. Unchanged focal adenomyomatosis at the tip of the gallbladder fundus. Liver, spleen, pancreas, left adrenal gland and kidneys are normal. No significant change in a 12 mm right adrenal adenoma with characteristic low-attenuation on prior CT. Fluid throughout the large and small bowel consistent with given history of diarrhea. No obstruction or abnormal wall thic kening. No inflammatory stranding surrounding a short appendix versus more likely appendiceal stump p ost prior appendectomy. Likely prior prostatectomy. Partially decompressed bladder is otherwise unrem arkable. No free intraperitoneal gas or fluid. No pathologically enlarged abdominal or pelvic lymphad enopathy. Tiny fat-containing umbilical hernia. Small bilateral fat-containing inguinal hernias. Mode rate lumbar and lower thoracic spondylosis with bridging osteophytes at multiple levels consistent wi th diffuse idiopathic skeletal hyperostosis (DISH). IMPRESSION: 1. Fluid throughout the otherwise normal-appearing large and small bowel consistent with diarrhea pot entially related to gastroenteritis. 2. Small pericardial effusion. Reviewed, dictated and finalized at location A. IMPRESSION: 1. Fluid throughout the otherwise normal-appearing large and small bowel consis tent with diarrhea potentially related to gastroenteritis. 2. Small pericardial effusion.
[2023-05-13 08:50] LABS: Basophils Percent Auto 0.6 % (0.2-1.2); Eosinophils Absolute Auto 0.3 K/mm3 (0-0.3); Eosinophils Percent Auto 3.8 % (0-4.4); Hemoglobin 15.8 g/dL (14.0-18.0); Immature Granulocyte Absolute 0.03 K/mm3 (0.00-0.031); Immature Granulocyte Percent A 0.5 % (0-0.5); Lymphocytes Absolute Auto 0.81 K/mm3 (0.9-3.2); Lymphocytes Percent Auto 12.4 % (18.3-44.2); Mean Corpuscular HGB Conc 34.3 g/dl (32-36); Mean Corpuscular Hemoglobin 30.9 pg (26-34); Mean Corpuscular Volume 89.8 fl (80-100); Mean Platelet Volume 8.9 fl (7.4-10.4); Monocytes Absolute Auto 0.5 K/mm3 (0.1-0.6); Monocytes Percent Auto 8.1 % (2.6-8.5); Neutrophils Absolute Auto 4.9 K/mm3 (1.3-6.7); Neutrophils Percent Auto 74.6 % (45.5-73.1); Platelet Count Result 176 k/mm3 (150-375); Red Blood Count 5.12 M/mm3 (4.6-6.20); Red Cell Distribution Width 13.6 % (11.5-14.5); White Blood Count 6.6 K/mm3 (4.5-10.0)
[2023-05-13] MEDS: ONDANSETRON INJ 4 MG/2 ML VIAL IV PUSH (08:56)
[2023-05-13] MEDS: SODIUM CHLORIDE 0.9% IV 1,000 ML 999 ML IV CONT (08:56)
[2023-05-13 09:04] LABS: Alanine Aminotransferase 29 U/L (6-50); Albumin Level 4.4 g/dL (3.5-5.1); Alkaline Phosphatase 62 U/L (38-126); Anion Gap 8 mmol/L (8-16); Aspartate Amino Transferase 22 U/L (17-59); Bilirubin,Total 1.3 mg/dL (0.2-1.3); Blood Urea Nitrogen 23 mg/dL (9-20); Carbon Dioxide 28 mmol/L (22-30); Chloride 103 mmol/L (98-107); Estimated CRCL calculation 85 ml/min; Estimated Glomerular Filt Rate > 60; Glucose 126 mg/dL (65-110); Lipase 90 U/L (23-300); Potassium 3.8 mmol/L (3.4-5.0); Sodium 139 mmol/L (137-145)
--- NOTE | 2023-05-13 09:16 | ED.NAVMDI ---
HPI - Nausea/Vomiting/Diarrhea General Chief complaint: Nausea/Vomiting/Diarrhea Stated complaint: allergic reaction? Time Seen by Provider: 05/13/23 08:55 Source: patient and old records reviewed Mode of arrival: ambulatory Limitations: no limitations History of Present Illness HPI Narrative: Patient is a 73-year-old male, with PMH of CHF, who presents to the ED with report of N/V/D. Patient reports he was recently started on Ozempic by his primary care doctor for weight loss. He experienced nausea/vomiting/diarrhea/dehydration when he was titrated up to the 2 mg dose at the beginning of this month. He was seen in the ED at that time and received fluid rehydration, electrolyte replacement. Patient was off of Ozempic for 3 weeks. He was restarted on Ozempic 0.25mg last week, and quickly increased to 0.5mg on Tuesday. He developed N/V/D again last night, unable to keep anything down. He also reported having oliguria, generalized weakness, but denies abdominal pain, fevers, rectal bleeding, melena, chest pain, shortness of breath, increased swelling, focal weakness. Related Data Home Medications Medication Instructions Recorded Confirmed isosorbide mononitrate 60 mg 60 mg PO DAILY 10/29/19 12/11/20 tablet,extended release 24 hr spironolactone 25 mg tablet 12.5 mg PO DAILY 10/29/19 12/11/20 testosterone cypionate 200 mg/mL 200 mg IM [id number] 10/29/19 12/11/20 intramuscular kit trazodone 100 mg tablet 100 mg PO HS 10/29/19 12/11/20 Mupirocin Compound 2 spray EACH NARE BID 12/11/20 12/11/20 carvedilol 3.125 mg tablet 3.125 mg PO BIDWMEAL 12/11/20 12/11/20 ipratropium bromide 42 mcg (0.06 2 spray intranasal BID 12/11/20 12/11/20 %) nasal spray omeprazole 40 mg capsule,delayed 40 mg PO DAILY PRN Gastric Reflux 12/11/20 12/11/20 release valsartan 80 mg tablet 80 mg PO HS 12/11/20 12/11/20 cholecalciferol (vitamin D3) 50 50 mcg PO DAILY 02/10/22 mcg (2,000 unit) capsule fexofenadine 60 mg-pseudoephedrine 1 tablet PO Q12H PRN 02/10/22 ER 120 mg tablet,ext.release,12 hr (Yoli-D 12 Hour) mecobalamin (vitamin B12) 1,000 1,000 mcg sublingual DAILY 02/10/22 mcg disintegrating tablet,sublingual dtvnnvvt-xfu-dbhnx acid 0.4 1 tablet PO DAILY 02/10/22 mg-lycopene 300 mcg-lutein 250 mcg tablet (Centravites 50 Plus) Allergies Allergy/AdvReac Type Severity Reaction Status Date / Time No Known Allergies Allergy Verified 02/10/22 14:57 Review of Systems Review of Systems: CONSTITUTIONAL: Reports generalized weakness. Denies fever, chills, or sweats. CARDIOVASCULAR: Denies chest pain. RESPIRATORY: Denies dyspnea. GASTROINTESTINAL: See HPI. GENITOURINARY: See HPI. SKIN: Denies rash or itching. MUSCULOSKELETAL: Denies back pain, joint pain, or myalgia. NEUROLOGIC: Denies headache, numbness, or weakness. All systems reviewed & are unremarkable except as noted in HPI and below PMFSH Past Medical History Medical History (Updated 05/13/23 @ 11:26 by Lynsey Palmer PA-C) CHF (congestive heart failure) Hypertension Morbid obesity MICHAEL (obstructive sleep apnea) Pituitary tumor Pulmonary hypertension Surgical History Surgical History H/O transurethral resection of prostate Social History Social History Smoking status: Never smoker Alcohol intake: never Substance use: never Substance use type: does not use Gender identity (if verbalized by the patient): Male Spiritual care concerns: No Exam Narrative: GENERAL: Well appearing, obese with BMI of 36.7, non-toxic, in no acute distress. HEAD: Normocephalic, atraumatic. NECK: Supple. No adenopathy, no masses. RESPIRATORY: Airway patent, respirations nonlabored. Clear to auscultation bilaterally, no rales, rhonchi, wheezing. CARDIOVASCULAR: Regular rate and rhythm without murmurs, rubs, or gallops. Peripheral
[2023-05-13 09:42] LABS: Magnesium 1.7 mg/dL (1.6-2.3)
[2023-05-13 09:52] LABS: NT Pro B Type Natriuretic Pept 352 pg/mL (19.9-100)
[2023-05-13 10:24] LABS: Appearance Urine Clear (Clear); Bacteria Urine None Seen /hpf; Bilirubin Urine 1+ (Negative); Blood Urine Negative (Negative); Color Urine Dark Yellow (Yellow); Glucose Urine UA Negative (Negative); Ketones Urine Trace mg/dL (Negative); Leukocyte Esterase Ur Trace LEU/UL (Negative); Need Manual Microscopic Reviewed; Nitrate Urine Negative (Negative); Protein Urine 1+ mg/dL (Negative); RBC Urine 0-2 /hpf (0-2); Specific Grav Ur 1.028 (1.001-1.035); Squamous Epithelial Cell Urine None seen /hpf (Few); WBC Urine 0-5 /hpf
[2023-05-13 10:25] LABS: Add Urine Microscopic? YES
== END 2023-05-13 11:52 | disposition home or self-care (01) ==
PROVIDERS: Emergency Medicine; Emergency Provider Physician Assistant; PCP Family Medicine
DX: R11.2 Nausea with vomiting, unspecified (principal); T38.3X5A Adverse effect of insulin and oral hypoglycemic [antidiabetic] drugs, initial encounter; I11.0 Hypertensive heart disease with heart failure; I50.9 Heart failure, unspecified; K52.9 Noninfective gastroenteritis and colitis, unspecified
CPT/HCPCS: 36415; 74177; 80053; 81001; 83690; 83735; 83880; 85025; 96361; 96374; 99284; J2405; J7030; Q9967

== ENCOUNTER 2023-06-01 15:45 | Outpatient (CLI) | payer MEDICARE, SELFPAY ==
--- NOTE | 2023-06-01 | ECHO_ITS ---
Patient Info Name: Benjamin Wright Age: 73 years : 1950 Gender: Male Ht: 72 in Wt: 272 lbs BSA: 2.55 m2 HR: 78 bpm BP: 135 / 72 mmHg Heart Rhythm: Sinus Rhythm Technical Quality: Poor Exam Date: 06/01/2023 4:08 PM Exam Location: [facility] Patient Status: Outpatient Admit Date: 06/01/2023 Staff Ordering Physician: Antonino Monzon MD Wet Pan Operator: Bernda Yip CT Attending Provider: Antonino Monzon MD Referring Physician: Na ESPINOZA; Exam Type: CA echo dop color flow w con Study Info Indications - CHF HTN Complete two-dimensional, color flow and Doppler transthoracic echocardiogram is performed with contrast to opacify the left ventricle and to improve the deliniation of the left ventricle endocardial borders. Contrast/Agitated Saline Contrast/Ag. Saline: Definity Amount: 2.00 ml Administered By: Sobeida Jack Existing IV Access: Yes New IV Access: Dorsum of Hand and Left Site Condition: IV removed Reason for Poor Study: patient body habitus Summary 1. Left ventricular chamber dimension is mildly enlarged. 2. Left ventricular systolic function is normal, estimated at 55-60%. 3. There is mildly increased left ventricular wall thickness. 4. The left ventricular diastolic function is indeterminate. 5. Left atrial chamber dimension is moderately enlarged. 6. Right atrial chamber dimension is mildly enlarged. 7. There is mild tricuspid valve regurgitation. 8. There is mild mitral valve regurgitation. 9. No pulmonary hypertension, estimated pulmonary arterial systolic pressure is 26 mmHg. Left Ventricle Left ventricular chamber dimension is mildly enlarged. Left ventricular systolic function is normal, estimated at 55-60%. There is mildly increased left ventricular wall thickness. The left ventricular diastolic function is indeterminate. Right Ventricle Right ventricular chamber dimension is normal. Right ventricular systolic function is normal. Left Atria Left atrial chamber dimension is moderately enlarged. Right Atria Right atrial chamber dimension is mildly enlarged. Atrial Septum Intact interatrial septum visualized by color flow imaging. Aortic Valve The aortic valve is trileaflet. There is mild aortic valve sclerosis. There is no aortic valve stenosis. There is trace aortic valve regurgitation. Pulmonic Valve The pulmonic valve is normal. There is no pulmonic valve stenosis. There is trace pulmonic regurgitation. Mitral Valve The mitral valve has normal leaflets. There is no mitral valve stenosis. There is mild mitral valve regurgitation. Tricuspid Valve The tricuspid valve leaflets are normal. There is no significant tricuspid valve stenosis. There is mild tricuspid valve regurgitation. No pulmonary hypertension, estimated pulmonary arterial systolic pressure is 26 mmHg. Pericardium/Pleural The pericardium appears normal. There is no pericardial effusion. Inferior Vena Cava Normal inferior vena cava with >50% collapse upon inspiration consistent with normal right atrial pressure, 10 mmHg. Aorta The aortic root size at the sinus of Valsalva is normal. Left Ventricular Outflow Tract Name Value Normal LVOT 2D LVOT Diameter 2.13 cm LV
[2023-06-01] MEDS: PERFLUTREN LIPID MICROSPHERES 1.5 ML VIAL DILUTED TO 10 ML TOTAL VOLUME IV PUSH (16:30)
== END 2023-06-01 15:46 | disposition home or self-care (01) ==
LOC: ANHCARD 15:46
PROVIDERS: PCP Family Medicine; Visit Provider Internal Medicine Cardiovascular Disease
DX: I27.20 Pulmonary hypertension, unspecified (principal); I50.32 Chronic diastolic (congestive) heart failure; R94.30 Abnormal result of cardiovascular function study, unspecified; I11.0 Hypertensive heart disease with heart failure; I08.1 Rheumatic disorders of both mitral and tricuspid valves
CPT/HCPCS: C8929; Q9957

== ENCOUNTER 2023-06-20 08:25 | Day surgery (SDC) | payer MEDICARE, SELFPAY ==
[2023-06-07 14:22] VITALS: BMI 37.9
[2023-06-10 11:24] VITALS: BMI 37.0
--- NOTE | 2023-06-18 11:06 | WPDANESEPPF ---
Anes - Initial Pre Proc Eval Procedure: Operation Date: 06/20/23 10:00 Proposed Procedures p Esophagogastroduodenoscopy - Cruzito Washington MD Date/Time: 06/18/23 11:06 Surgeon: Cruzito Washington MD Pre Op Diagnosis: Gerd and Dysphagia Patient Data Age: 73 Gender: M Height: 1.83 m Weight: 124 kg Allergies Allergy/AdvReac Type Severity Reaction Status Date / Time No Known Allergies Allergy Verified 06/20/23 08:47 Home Medications Medication Instructions Recorded Confirmed Type isosorbide mononitrate 60 mg 60 mg PO DAILY 10/29/19 06/20/23 History tablet,extended release 24 hr spironolactone 25 mg tablet 12.5 mg PO DAILY 10/29/19 06/20/23 History testosterone cypionate 200 mg/mL 200 mg IM [id number] 10/29/19 06/20/23 History intramuscular kit trazodone 100 mg tablet 100 mg PO HS 10/29/19 06/20/23 History Mupirocin Compound 2 spray EACH NARE BID 12/11/20 06/20/23 History carvedilol 3.125 mg tablet 3.125 mg PO BIDWMEAL 12/11/20 06/20/23 History ipratropium bromide 42 mcg (0.06 2 spray intranasal BID 12/11/20 06/20/23 History %) nasal spray omeprazole 40 mg capsule,delayed 40 mg PO DAILY PRN Gastric Reflux 12/11/20 06/20/23 History release valsartan 80 mg tablet 80 mg PO HS 12/11/20 06/20/23 History cholecalciferol (vitamin D3) 50 50 mcg PO DAILY 02/10/22 06/20/23 History mcg (2,000 unit) capsule fexofenadine 60 mg-pseudoephedrine 1 tablet PO Q12H PRN Allergy 02/10/22 06/20/23 History ER 120 mg tablet,ext.release,12 hr Symptoms (Yoli-D 12 Hour) mecobalamin (vitamin B12) 1,000 1,000 mcg sublingual DAILY 02/10/22 06/20/23 History mcg disintegrating tablet,sublingual izaemjcs-kmz-qkezi acid 0.4 1 tablet PO DAILY 02/10/22 06/20/23 History mg-lycopene 300 mcg-lutein 250 mcg tablet (Centravites 50 Plus) semaglutide 2 mg/dose (8 mg/3 mL) 8 mg subcut WEEKLY 06/10/23 06/20/23 History subcutaneous pen injector (Ozempic) Patient hx anesthesia problems: none Family hx anesthesia problems: none Results Review: All pre-operative results and documents have been reviewed as part of the pre-operative evaluation. [facility] Past Medical History Medical History (Updated 06/18/23 @ 11:07 by Griffin Wolf DO) CHF (congestive heart failure) EF 55-60% Hypertension Morbid obesity MICHAEL (obstructive sleep apnea) Pituitary tumor Pulmonary hypertension Surgical History Surgical History H/O transurethral resection of prostate Social History Social History Smoking status: Never smoker Alcohol intake: never Substance use: never Substance use type: does not use Living arrangements: alone Gender identity (if verbalized by the patient): Male Spiritual care concerns: No Anes - Eval Final PreProcedure Day of Procedure 06/18/23 11:06 Patient weight: obese Heart: regular rate and rhythm Lungs: clear to auscultation Airway: Mallampati scale class II Neurological: alert and oriented Last oral intake: >/= 8 hours ASA classification: III Emergent: no Anesthetic plan: proceed Anesthesia type and monitoring: general GIVS and standard monitoring Results Review: All pre-operative results and documents have been reviewed as part of the pre-operative evaluation. Informed Consent: The patient's anesthetic plan and its attendant risks and benefits were discussed with the patient/family/POA. Questions were solicited and answers provided to the satisfaction of the patient/family/POA.
--- NOTE | 2023-06-20 08:46 | WPDHPUPDATE1 ---
History and Physical Update Update Date/Time: 06/20/23 08:46 History and Physical has been reviewed, including an updated exam of the patient. There are NO changes in the patient's condition. Risks, benefits, and alternatives have been discussed and questions answered. Patient agrees to proceed with procedure.
[2023-06-20 08:50] VITALS: BP 131/84; PULSE 74; RESP 18; TEMP 36.6; O2SAT 98
[2023-06-20] MEDS: LACTATED RINGERS 1,000 ML 150 ML IV CONT (09:00)
[2023-06-20 10:01] VITALS: BP 108/71; PULSE 70; RESP 14; O2SAT 95
[2023-06-20 10:11] VITALS: BP 111/73; PULSE 64; RESP 14; O2SAT 97
[2023-06-20 10:21] VITALS: BP 116/75; PULSE 69; RESP 15; O2SAT 98
--- NOTE | 2023-06-20 12:33 | WPDANESPN ---
Anes - Prog Note Post-Op Date/Time: 06/20/23 12:33 Cardiovascular status: normal Respiratory status: normal Airway patency: baseline Mental status: baseline Post-Op hydration status: normal Vital Signs: Last Vital Signs Temp 36.6 C 06/20/23 08:50 Pulse 69 06/20/23 10:21 Resp 15 06/20/23 10:21 BP 116/75 06/20/23 10:21 Pulse Ox 98 06/20/23 10:21 O2 Del Method Room Air 06/20/23 10:21 Pain Score (VAS): 0 I/O: Intake & Output 06/19/23 06/20/23 06/20/23 23:59 07:59 15:59 Intake Total 400 Balance 400 Post-procedural complaints: none Patient Feedback: Patient satisfied with anesthetic care. Other Findings: Patient vital signs back to baseline. Patient denies nausea and vomiting. Patient's pain under control. Patient OK for discharge.
== END 2023-06-20 11:03 | disposition home or self-care (01) ==
PROVIDERS: PCP Family Medicine; Visit Provider Internal Medicine Gastroenterology
PROC: 0DJ08ZZ Inspection of Upper Intestinal Tract, Via Natural or Artificial Opening Endoscopic (ICD-10-PCS; CPT 43235; principal; 2023-06-20 10:00)
DX: R13.19 Other dysphagia (principal); K21.9 Gastro-esophageal reflux disease without esophagitis
CPT/HCPCS: 43450; 43239

== ENCOUNTER 2023-11-19 23:06 | Emergency (ER) | payer MEDICARE, SELFPAY ==
--- NOTE | 2023-11-19 23:07 | ECG_ITS ---
Measurements Intervals [place] Rate: 42 P: 48 CT: 194 QRS: -14 QRSD: 101 T: 68 QT: 460 QTc: 385 Interpretive Statements SINUS BRADYCARDIA NONSPECIFIC ST & T-WAVE ABNORMALITY- ANTEROLAT/HIGH LAT LEADS BASELINE ARTIFACT- I, III, AVR, AVL, AVF, V1-V6 ABNORMAL ECG COMPARED TO ECG 04/18/2023 03:33:07 SINUS BRADYCARDIA NOW PRESENT Electronically Signed On 11-20-2023 9:23:24 FIRE TRUCK DRIVER by Donte Razo D.O.
[2023-11-19 23:15] VITALS: BP 143/68; PULSE 43; RESP 22; TEMP 36.9; O2SAT 97
[2023-11-19 23:20] VITALS: BP 155/79; PULSE 43; RESP 11; O2SAT 98
--- NOTE | 2023-11-19 23:25 | ECG_ITS ---
Measurements Intervals [place] Rate: 41 P: 52 ID: [id number] QRS: -13 QRSD: 112 T: 97 QT: 468 QTc: 391 Interpretive Statements SINUS BRADYCARDIA INTRAVENTRICULAR CONDUCTION DELAY NONSPECIFIC ST & T-WAVE ABNORMALITY- LAT/HIGH LAT LEADS BASELINE WANDER- V4-V6 ABNORMAL ECG COMPARED TO ECG 11/19/2023 23:13:13 INTRAVENTRICULAR CONDUCTION DELAY NOW PRESENT Electronically Signed On 11-20-2023 16:03:28 WET MIXER by Donte Razo D.O.
[2023-11-19 23:31] LABS: Basophils Absolute Auto 0.1 K/mm3 (0.0-0.1); Basophils Percent Auto 0.7 % (0.2-1.2); Eosinophils Absolute Auto 0.2 K/mm3 (0-0.3); Eosinophils Percent Auto 2.3 % (0-4.4); Hematocrit 44.1 % (42.0-52.0); Hemoglobin 14.7 g/dL (14.0-18.0); Immature Granulocyte Absolute 0.04 K/mm3 (0.00-0.031); Immature Granulocyte Percent A 0.5 % (0-0.5); Lymphocytes Absolute Auto 2.29 K/mm3 (0.9-3.2); Lymphocytes Percent Auto 26.9 % (18.3-44.2); Mean Corpuscular HGB Conc 33.3 g/dl (32-36); Mean Corpuscular Hemoglobin 30.8 pg (26-34); Mean Corpuscular Volume 92.3 fl (80-100); Mean Platelet Volume 9.1 fl (7.4-10.4); Monocytes Absolute Auto 0.6 K/mm3 (0.1-0.6); Monocytes Percent Auto 6.8 % (2.6-8.5); Neutrophils Absolute Auto 5.4 K/mm3 (1.3-6.7); Neutrophils Percent Auto 62.8 % (45.5-73.1); Platelet Count Result 173 k/mm3 (150-375); Red Blood Count 4.78 M/mm3 (4.6-6.20); Red Cell Distribution Width 13.7 % (11.5-14.5); White Blood Count 8.5 K/mm3 (4.5-10.0)
[2023-11-19 23:41] LABS: Alanine Aminotransferase 29 U/L (6-50); Albumin Level 4.5 g/dL (3.5-5.1); Alkaline Phosphatase 54 U/L (38-126); Anion Gap 11 mmol/L (8-16); Aspartate Amino Transferase 26 U/L (17-59); Bilirubin,Total 0.6 mg/dL (0.2-1.3); Blood Urea Nitrogen 25 mg/dL (9-20); Calcium 9.1 mg/dL (8.4-10.2); Carbon Dioxide 24 mmol/L (22-30); Chloride 105 mmol/L (98-107); Estimated Glomerular Filt Rate > 60; Glucose 139 mg/dL (65-110); Lipase 125 U/L (23-300); Potassium 4.1 mmol/L (3.4-5.0); Sodium 140 mmol/L (137-145)
[2023-11-19 23:48] LABS: Partial Thromboplastin Time 31.6 SECONDS (22.3-36.8); Prothrombin Time 13.4 Seconds (11.1-14.7)
[2023-11-19 23:53] LABS: NT Pro B Type Natriuretic Pept 48 pg/mL (19.9-100); Troponin I < 0.012 ng/mL (0.000-0.034)
--- NOTE | 2023-11-20 00:09 | ED.GENADULT ---
HPI - General Adult General Chief complaint: Chest Pain Stated complaint: chest pain Time Seen by Provider: 11/19/23 23:23 History of Present Illness HPI narrative: Patient 73-year-old gentleman who presents emergency department with chief complaint of chest discomfort. The patient reports this evening started having pain in the middle portion of his chest that then radiated to his left arm the left side of his chest the patient states was a pressure-like pain but also sharp patient reports he had nausea and vomiting with this as well the patient states that as a feeling of indigestion does report that he has history of congestive heart failure and also has had a cardiac catheterization and told that his ?vessels were fine.? The patient states he is followed by cardiology notes. The patient reports he is supposed to see Cardiology in the next week or so. Patient denies fever does report that he has discomfort in the epigastric region. Related Data Home Medications Medication Instructions Recorded Confirmed isosorbide mononitrate 60 mg 60 mg PO DAILY 10/29/19 06/20/23 tablet,extended release 24 hr spironolactone 25 mg tablet 12.5 mg PO DAILY 10/29/19 06/20/23 testosterone cypionate 200 mg/mL 200 mg IM [id number] 10/29/19 06/20/23 intramuscular kit trazodone 100 mg tablet 100 mg PO HS 10/29/19 06/20/23 Mupirocin Compound 2 spray EACH NARE BID 12/11/20 06/20/23 carvedilol 3.125 mg tablet 3.125 mg PO BIDWMEAL 12/11/20 06/20/23 ipratropium bromide 42 mcg (0.06 2 spray intranasal BID 12/11/20 06/20/23 %) nasal spray omeprazole 40 mg capsule,delayed 40 mg PO DAILY PRN Gastric Reflux 12/11/20 06/20/23 release valsartan 80 mg tablet 80 mg PO HS 12/11/20 06/20/23 cholecalciferol (vitamin D3) 50 50 mcg PO DAILY 02/10/22 06/20/23 mcg (2,000 unit) capsule fexofenadine 60 mg-pseudoephedrine 1 tablet PO Q12H PRN Allergy 02/10/22 06/20/23 ER 120 mg tablet,ext.release,12 hr Symptoms (Yoli-D 12 Hour) mecobalamin (vitamin B12) 1,000 1,000 mcg sublingual DAILY 02/10/22 06/20/23 mcg disintegrating tablet,sublingual svhatcsh-ifg-ojavq acid 0.4 1 tablet PO DAILY 02/10/22 06/20/23 mg-lycopene 300 mcg-lutein 250 mcg tablet (Centravites 50 Plus) semaglutide 2 mg/dose (8 mg/3 mL) 8 mg subcut WEEKLY 06/10/23 06/20/23 subcutaneous pen injector (Ozempic) Allergies Allergy/AdvReac Type Severity Reaction Status Date / Time No Known Allergies Allergy Verified 06/20/23 08:47 Review of Systems Review of Systems: A 10 system review of systems was completed on the patient and is negative except for what is stated in the HPI. Nursing and ancillary documentation was reviewed. PMFSH Past Medical History Medical History CHF (congestive heart failure) EF 55-60% Hypertension Morbid obesity MICHAEL (obstructive sleep apnea) Pituitary tumor Pulmonary hypertension Surgical History Surgical History H/O transurethral resection of prostate Social History Social History Smoking status: Never smoker Alcohol intake: never Substance use: never Substance use type: does not use Living arrangements: alone Gender identity (if verbalized by the patient): Male Spiritual care concerns: No Exam Narrative: GENERAL: Well-appearing, well-nourished, and in no acute distress. HEAD: Normocephalic, atraumatic. EYES: PERRLA and EOMI. ENT: Nares clear, no rhinorrhea or epistaxis. Mucous membranes moist. NECK: Supple. CHEST: Clear to auscultation. No respiratory distress. HEART: Regular rate and rhythm. No murmur heard. Normal peripheral pulses. ABDOMEN: Soft, nontender, nondistended, normal active bowel sounds. EXTREMITIES: Normal range of motion. No edema. SKIN: Warm, dry, no rash. NEURO: No focal deficits. Alert and oriented x
--- NOTE | 2023-11-20 00:30 | PC.NURSE ---
Upon entering pt room, pt began stating No one is helping me, if you aren't going to do anything then I am going to just leave . this RN explained to pt, pt blood work was being tested, an xray was taken, and an ekg was preformed. Pt stated The doctor came in here and didn't tell me what my diagnosis was. What is an xray going to show, there is nothing wrong with my bones . This rn educated pt about procedures, and why an xray was preformed. this rn then educated pt that another Iv was going to have to be initiated due to him pulling his previous IV out. Pt then stated no, you are not going to put another Iv in my arm, I want pain medications. this rn informed pt there were two medications I could give pt but they were prescribed via IV route, however there was also a pain medication prescribed sublinguinal that would be placed under the tongue. Pt then stated, I have to drive home, this is pointless I want to leave . This Rn explained to pt he would have to sign out against medical advice. Pt stated yeah whatever . This rn informed edp dr. eldridge. Pt was then seen exiting through the emergency exit.
== END 2023-11-20 00:30 | disposition left against medical advice (07) ==
LOC: ANHED 11-20 00:24
PROVIDERS: Emergency Provider Emergency Medicine; PCP Family Medicine
DX: R07.89 Other chest pain (principal); I50.9 Heart failure, unspecified; I11.0 Hypertensive heart disease with heart failure; I27.20 Pulmonary hypertension, unspecified; E66.01 Morbid (severe) obesity due to excess calories; G47.33 Obstructive sleep apnea (adult) (pediatric); Z90.79 Acquired absence of other genital organ(s); Z79.85 Long-term (current) use of injectable non-insulin antidiabetic drugs; R00.1 Bradycardia, unspecified; I45.9 Conduction disorder, unspecified; R94.31 Abnormal electrocardiogram [ECG] [EKG]
CPT/HCPCS: 36415; 80053; 83690; 83880; 84484; 85025; 85610; 85730; 93005; 99284